=== PATIENT | male | born 1990 | race Caucasian/White ===

== ENCOUNTER 2017-05-07 21:28 | Emergency (ER) | payer OTHER ==
[~2017-05-07] VITALS: Ht 167.6 cm; Wt 80.0 kg
[2017-05-07 21:45] VITALS: Ht 167.6 cm; Wt 80.0 kg
[2017-05-07] MEDS ORDERED: KETOROLAC 30 MG INJ IV STA (21:53)
[2017-05-07] MEDS ORDERED: SOD CHLORIDE 0.9% 1,000 ML IV STA (21:53)
[2017-05-07] MEDS ORDERED: IBUP200C PO (22:40)
[2017-05-07 23:02] LABS: ABNORMAL IP MESSAGE 1; BASOPHIL # 0.1 10^3/ul (0.0-0.1); BASOPHILS % 0.6 % (0.0-2.0); EOSINOPHILS # 0.2 10^3/ul (0.0-0.5); EOSINOPHILS % 2.2 % (0.0-7.0); HEMATOCRIT 42.1 % (42.0-52.0); HEMOGLOBIN 14.4 g/dl (14.0-18.0); LYMPHOCYTES # 5.1 10^3/ul (0.8-2.9); LYMPHOCYTES % 51.3 % (15.0-51.0); MEAN CORPUSCULAR HEMOGLOBIN 29.4 pg (29.0-33.0); MEAN CORPUSCULAR HGB CONC 34.2 g/dl (32.0-37.0); MEAN CORPUSCULAR VOLUME 86.1 fl (82.0-101.0); MEAN PLATELET VOLUME 12.8 fl (7.4-10.4); MONOCYTE # 0.9 10^3/ul (0.3-0.9); MONOCYTES % 8.5 % (0.0-11.0); NEUTROPHIL # 3.7 10^3/ul (1.6-7.5); NEUTROPHILS % 37.3 % (39.0-77.0); PLATELET COUNT 257 10^3/UL (140-415); POSITIVE DIFF @See below; RED BLOOD COUNT 4.89 10^6/ul (4.70-6.10); RED CELL DISTRIBUTION WIDTH 12.9 % (11.5-14.5)
--- NOTE | 2017-05-07 23:18 | ERD ---
ER Documentation Chief Complaint Date/Time DATE: 05/07/17 TIME: 23:16 Chief Complaint sudden onset SOB x 30 minutes, worse left lower chest, no illness, no hx HPI This is a 26-year-old male with no past medical history that presents to the emergency department complaining of a one-week history of left-sided chest discomfort that is exacerbated when he takes in a deep breath. He also indicates that he has been having shortness of breath that occurred 30 minutes prior to arrival. He denies any recent travel or prolonged immobilization. He denies any swelling of his lower extremities are calf spasms. He has had no fevers or shaking or chills. He denies any blunt or penetrating chest trauma. He states that the chest discomfort does not radiate to the neck arm back or jaw. He denies any palpitations. He has had no fevers or shaking or chills. He denies tobacco use and has no family history of coronary artery disease in his first-degree relatives or sudden cardiac . ROS All systems reviewed and are negative except as per history of present illness. Medications Home Meds Reported Medications Ibuprofen* (Ibuprofen*) 200 Mg Capsule, 200 MG PO QID Y for PAIN, CAP 05/07/17 Allergies Allergies: Coded Allergies: No Known Allergy (Unverified , 05/07/17) PMhx/Soc Medical and Surgical Hx: pt denies Medical Hx, pt denies Surgical Hx History of Surgery: No Anesthesia Reaction: No Hx Neurological Disorder: No Hx Respiratory Disorders: No Hx Cardiac Disorders: No Hx Psychiatric Problems: No Hx Miscellaneous Medical Probl: No Hx Alcohol Use: No Hx Substance Use: No Hx Tobacco Use: No Smoking Status: Never smoker Physical Exam Vitals Vital Signs Date Time Temp Pulse Resp B/P Pulse Ox O2 Delivery O2 Flow Rate FiO2 05/07/17 21:51 98.9 79 20 110/67 100 Room Air 05/07/17 21:45 99.5 77 22 128/73 100 Physical Exam Constitutional:Well-developed. Well-nourished. HEENT:Normocephalic. Atraumatic.Pupils were equal round reactive to light. Moist mucous membranes.No tonsillar exudates. Neck: No nuchal rigidity. No lymphadenopathy. No posterior cervical spine tenderness or step-offs. Respiratory: Not using accessory muscles of respiration.Lungs were clear to auscultation bilaterally. No rhonchi. No rales. No wheezing. Cardiovascular: Regular rate regular rhythm.No murmurs. No rubs were appreciated.S1, S2 normal. Distal pulses are palpable 2+ bilaterally. Bilateral chest wall tenderness on the left with no crepitus no ecchymosis no flail chest GI: Abdomen was soft. Nontender. Non Distended. No pulsatile abdominal masses or bruits. No rebound. No guarding. Bowel sounds were present and normal. Muscle skeletal: Full range of motion of both the upper and lower extremities bilaterally.Normal muscle tone.No assymetrical calf tenderness or swelling. Skin: No petechia, no purpura. No lesions on the palms or the soles of the feet. No maculopapular rash. NEURO: Patient was alert, awake, orientated x3.No facial droop. Gait observed and normal with no ataxia.Speech had regular rate and rhythm. No focal neurological deficits. Result Diagram: 05/07/172219 Results 24 hrs Laboratory Tests Test 05/07/17 22:20 White Blood Count 10.010^3/ul Red Blood Count 4.8910^6/ul Hemoglobin 14.4g/dl Hematocrit 42.1% Mean Corpuscular Volume 86.1fl Mean Corpuscular Hemoglobin 29.4pg Mean Corpuscular Hemoglobin Concent 34.2g/dl Red Cell Distribution Width 12.9% Platelet Count 75617^3/UL Mean Platelet Volume 12.8fl Neutrophils % 37.3% Lymphocytes % 51.3% Monocytes % 8.5% Eosinophils % 2.2% Basophils % 0.6% Nucleated Red Blood Cells % 0.0/100WBC Neutrophils # 3.710^3/ul Lymphocytes # 5.110^3/ul Monocytes # 0.910^3/ul Eosinophils # 0.210^3/ul Basophils # 0.110^3/ul Nucleated Red Blood Cells # 0.010^3/ul Current Medications Medications (Trade) Dose Ordered Sig/Chiquita Route PRN Reason Start Time Stop Time Status Last Admin Dose Admin Sodium Chloride (NS) 1,000 ml @ 1,000 mls/hr Q1H STAT IV 05/07/17 21:53 05/07/17 22:52 DC 05/07/17 22:00 Ketorolac Tromethamine (Toradol) 30 mg ONCE STAT IV 05/07/17 21:53 8/7/17 21:54 DC 05/07/17 22:00 Procedures/MDM The patient presented to the emergency department complaining of chest pain. My clinical evaluation and workup was to distinguish minor causes of chest pain from acute life threatening cardiopulmonary causes such as myocardial infarction , pulmonary embolism, aortic dissection, esophageal rupture, cardiac tamponade, The patient was placed on a monitor technician, continuous pulse oximetry and IV access established by nursing staff. The patient received IV Toradol for analgesic control. The patient also complained of shortness of breath on obtained a CT scan of the patient's chest which showed no evidence of aortic dissection or pulmonary embolism. I did feel the patient's symptoms could be exacerbated by pleurisy. 12 Lead EKG tracing ordered and reviewed by myself showed: Normal sinus rhythm of 86 bpm and no arrhythmia. W[place] interval normal. QRS duration normal. No ST segment elevation No ST segment depression. No changes consistent with acute ischemia. The patients chest pain was reproduced by palpation and horizontal flexion of the arms. It was my clinical impression that the pain was a result of inflammation of the skin and subcutaneous structures of the chest wall versus myocardial ischemia. I felt the patient had low-risk chest pain and could therefore be safely discharged with close follow-up. The patient was discharged home in fair condition. They were instructed to return to the emergency department at any time if there was any worsening of their condition. The patient stated they would follow up with their PCP in the next 24-48 hours to initiate a suitable medication regimen under the care of their PCP as well as to allow their PCP to monitor any drug reactions. The patient was discharged home with prescriptions after they gave informed consent to the new medication. They were also fully informed by myself on the adverse effects and adverse drug interactions in order to provide adequate safeguards to prevent possible adverse reactions to medications. Departure Diagnosis: Primary Impression: Pleurisy Additional Impression: Costochondral chest pain Condition: Fair LORIE MOLINA May 07, 2017 23:18
[2017-05-07] MEDS ORDERED: IBUP800T25 PO (23:19)
[2017-05-07 23:22] LABS: ALANINE AMINOTRANSFERASE 58 IU/L (13-69); ALBUMIN 4.6 g/dl (3.3-4.9); ALBUMIN/GLOBULIN RATIO 1.48; ALKALINE PHOSPHATASE 113 IU/L (42-121); ANION GAP 21 (8-16); ASPARTATE AMINO TRANSFERASE 33 IU/L (15-46); BILIRUBIN,INDIRECT 0.2 mg/dl (0-1.1); BILIRUBIN,TOTAL 0.2 mg/dl (0.2-1.3); BLOOD UREA NITROGEN 18 mg/dl (7-20); CALCIUM 9.4 mg/dl (8.4-10.2); CARBON DIOXIDE 22 mmol/L (21-31); CHLORIDE 105 mmol/L (97-110); CREATINE KINASE 211 IU/L (23-200); CREATININE 0.87 mg/dl (0.61-1.24); GLUCOSE 90 mg/dl (70-220); POTASSIUM 3.6 mmol/L (3.5-5.1); SODIUM 144 mmol/L (135-144); TOTAL PROTEIN 7.7 g/dl (6.1-8.1)
[2017-05-07 23:33] LABS: B-TYPE NATRIURETIC PEPTIDE 103 PG/ML (0-125)
[2017-05-07] MEDS ORDERED: SOD CHLORIDE 0.9% 100 ML ONE (23:35)
[2017-05-07] MEDS ORDERED: IOHEXOL 300MG/ML 150 ML BTL ONE (23:35)
[2017-05-07 23:49] LABS: TROPONIN-I < 0.012 ng/ml (0.00-0.12)
--- NOTE | 2017-05-08 00:04 | RADRPT ---
PROCEDURE: CT angiogram chest. CLINICAL INDICATION: Shortness of breath. TECHNIQUE: CT angiogram of the chest was performed utilizing axial images with reconstructions in sagittal and coronal planes following the intravenous administration of 100 cc Omnipaque 300 contras t. The administered radiation dose is CTDI 14.5 mGy, DLP 609 mGy-cm. COMPARISON: No pertinent prior examinations are submitted for comparison. FINDINGS: Pulmonary angiogram: The pulmonary arteries are adequately opacified to the level of the segmental pulmonary artery branches. There is minimal respiratory motion artifact. There is no evidence of p ulmonary embolus. Aortogram: There is no evidence of aortic dissection or aneurysm. Major branches of the aorta are patent. Chest: The lungs are clear. No pleural or pericardial effusions are seen. The tracheobronchial tree is un remarkable. The heart is normal in size. No pericardial effusion is seen. There is no evidence of mediastinal or hilar adenopathy. There is mild bilateral gynecomastia. Visualized Upper abdomen: Unremarkable. Osseous structures: Unremarkable. IMPRESSION: No evidence of pulmonary embolus. RPTAT: HIKT .Christos Jansen MD, MD Date Time Electronically viewed and signed by .Christos Jansen MD, on 05/08/2017 00:04 .T/
[2017-05-08 00:58] VITALS: BP 132/69; PULSE 75; RESP 20; TEMP 98.3
== END 2017-05-08 01:00 | disposition home or self-care (01) ==
LOC: E/R 21:28
DX: R09.1 Pleurisy (principal); R07.1 Chest pain on breathing
CPT/HCPCS: 71275; 80053; 82550; 82553; 83880; 84484; 85025; 93005; 96374; 99285; J1885; J7030; Q9967